=== PATIENT | female | born 1995 | race Two or more races ===

== ENCOUNTER 2020-09-17 21:08 | Emergency (ER) | payer OTHER ==
[2020-09-17 21:15] VITALS: BP 107/65; PULSE 102; TEMP 98.5; BMI 32.9
== END 2020-09-17 21:58 | disposition home or self-care (01) ==
LOC: JERFT 21:08
DX: S61.206A Unspecified open wound of right little finger without damage to nail, initial encounter (principal)
CPT/HCPCS: 99282-25

== ENCOUNTER 2020-11-25 21:11 | Emergency (ER) | payer OTHER ==
[2020-11-25 21:18] VITALS: BMI 35.9
[2020-11-25] MEDS ORDERED: SODIUM CHLORIDE 1,000 ML IV STA (22:40)
[2020-11-25] MEDS ORDERED: METOCLOPRAMIDE HCL INJECTION 10 MG/2 ML VIAL IVPUSH ONE (22:40)
[2020-11-25] MEDS ORDERED: ACETAMINOPHEN 1000 MG/100 ML VIAL (NON FORMULARY) IVPB ONE (22:40)
[2020-11-25] MEDS ORDERED: MAG HYDROX/AL HYDROX/SIMETH 30 ML UNIT-DOSE CUP PO ONE (22:43)
[2020-11-25] MEDS ORDERED: FAMOTIDINE 20 MG/50 ML IVPB 20 MG/50 ML MG IVPB ONE ×2 (22:43→22:49)
[2020-11-25] MEDS ORDERED: MAG HYDROX/AL HYDROX/SIMETH 30 ML UNIT-DOSE CUP ONE (22:49)
[2020-11-25] MEDS ORDERED: METOCLOPRAMIDE HCL INJECTION 10 MG/2 ML VIAL ONE (22:49)
[2020-11-25] MEDS ORDERED: ACETAMINOPHEN INJECTION 100 ML IVPB ONE (22:49)
[2020-11-25 23:03] LABS: BASO % 0.6 % (0-2.0); EOS % 0.4 % (0-4.5); HEMATOCRIT 37.7 % (32.4-45.2); HEMOGLOBIN 12.7 GM/dL (10.7-15.3); LYMPH % 28.7 % (8-40); MCH 29.8 pg (25.7-33.7); MCHC 33.6 g/dl (32.0-36.0); MEAN CELL VOLUME 88.6 fl (80-96); MEAN PLT VOLUME 8.6 fl (7.5-11.1); MONO % 5.6 % (3.8-10.2); NEUT % 64.7 % (42.8-82.8); PLATELET COUNT 386 10^3/uL (134-434); RBC 4.25 M/mm3 (3.60-5.2); RDW 16.1 % (11.6-15.6); WHITE BLOOD COUNT 12.5 K/mm3 (4.0-10.0)
[2020-11-25 23:26] LABS: EPI CELLS 35 /uL (0-25.1); HYALINE CASTS 6 /uL (0-3.1); URINE APPEARANCE CLOUDY; URINE BACTERIA 853 /uL (0-1359); URINE BILIRUBIN NEGATIVE (NEGATIVE); URINE COLOR YELLOW; URINE GLUCOSE (UA) NEGATIVE (NEGATIVE); URINE KETONE TRACE (NEGATIVE); URINE LEUK ESTERASE TRACE (NEGATIVE); URINE NITRITE NEGATIVE (NEGATIVE); URINE PROTEIN NEGATIVE (NEGATIVE); URINE WBC 71 /uL (0-25.8)
[2020-11-25 23:28] LABS: ALBUMIN 3.6 g/dl (3.4-5.0); BLOOD UREA NITROGEN 7.1 mg/dL (7-18); CALCIUM 9.4 mg/dL (8.5-10.1)
[2020-11-25 23:32] LABS: CREATININE 0.6 mg/dL (0.55-1.3)
[2020-11-25 23:33] LABS: BILIRUBIN,TOTAL 0.1 mg/dL (0.2-1); TOT PROT 7.5 g/dl (6.4-8.2)
[2020-11-26 00:03] LABS: URINE RBC 70.1 /uL (0-23.9)
[2020-11-26] MEDS ORDERED: NITROFURANTOIN MACROCRYSTAL 50 MG CAPSULE (FP) PO SCH (01:30)
[2020-11-26 01:54] VITALS: BP 107/71; PULSE 73; TEMP 98.8
== END 2020-11-26 01:48 | disposition home or self-care (01) ==
LOC: JER 21:11
PROC: 3E033GC Introduction of Other Therapeutic Substance into Peripheral Vein, Percutaneous Approach (ICD-10-PCS; principal; 2020-11-25)
DX: O21.0 Mild hyperemesis gravidarum (principal); O23.41 Unspecified infection of urinary tract in pregnancy, first trimester; Z3A.01 Less than 8 weeks gestation of pregnancy
CPT/HCPCS: 36415; 76830-TC; 80053; 81003; 83690; 84702; 85025; 87077; 87086; 87186; 99284-25; J0131

== ENCOUNTER 2021-01-04 21:59 | Emergency (ER) | payer OTHER ==
[2021-01-04 22:10] VITALS: BP 115/74; PULSE 82; TEMP 98.1; BMI 34.7
[2021-01-04] MEDS ORDERED: ONDANSETRON 4 MG/2 ML VIAL IVPUSH ONE (23:32)
[2021-01-04] MEDS ORDERED: SODIUM CHLORIDE 1,000 ML IV STA (23:32)
[2021-01-04] MEDS ORDERED: ONDANSETRON 4 MG/2 ML VIAL ONE (23:36)
[2021-01-05 00:17] LABS: BASO % 0.6 % (0-2.0); EOS % 0.5 % (0-4.5); HEMATOCRIT 36.1 % (32.4-45.2); HEMOGLOBIN 12.1 GM/dL (10.7-15.3); LYMPH % 28.9 % (8-40); MCH 29.5 pg (25.7-33.7); MCHC 33.6 g/dl (32.0-36.0); MEAN CELL VOLUME 87.7 fl (80-96); MONO % 3.6 % (3.8-10.2); NEUT % 66.4 % (42.8-82.8); PLATELET COUNT 378 10^3/uL (134-434); RBC 4.11 M/mm3 (3.60-5.2); RDW 15.7 % (11.6-15.6); WHITE BLOOD COUNT 12.9 K/mm3 (4.0-10.0)
[2021-01-05 00:45] LABS: CALCIUM 9.3 mg/dL (8.5-10.1)
[2021-01-05 00:46] LABS: ALBUMIN 3.2 g/dl (3.4-5.0); BLOOD UREA NITROGEN 6.6 mg/dL (7-18)
[2021-01-05 00:49] LABS: CREATININE 0.6 mg/dL (0.55-1.3)
[2021-01-05 00:51] LABS: BILIRUBIN,TOTAL 0.2 mg/dL (0.2-1); TOT PROT 7.4 g/dl (6.4-8.2)
[2021-01-05 01:54] LABS: EPI CELLS 36 /uL (0-25.1); HYALINE CASTS 7 /uL (0-3.1); PH,URINE 6.5 (5.0-8.0); URINE BACTERIA 814 /uL (0-1359); URINE BILIRUBIN NEGATIVE (NEGATIVE); URINE COLOR YELLOW; URINE GLUCOSE (UA) NEGATIVE (NEGATIVE); URINE KETONE 1+ (NEGATIVE); URINE LEUK ESTERASE TRACE (NEGATIVE); URINE NITRITE NEGATIVE (NEGATIVE); URINE PROTEIN 2+ (NEGATIVE); URINE WBC 42 /uL (0-25.8)
[2021-01-05 04:11] LABS: URINE APPEARANCE CLEAR
== END 2021-01-05 01:45 | disposition home or self-care (01) ==
LOC: JER 21:59
PROC: 3E033GC Introduction of Other Therapeutic Substance into Peripheral Vein, Percutaneous Approach (ICD-10-PCS; principal; 2021-01-04)
DX: O21.0 Mild hyperemesis gravidarum (principal); O26.891 Other specified pregnancy related conditions, first trimester; N83.201 Unspecified ovarian cyst, right side; Z3A.12 12 weeks gestation of pregnancy
CPT/HCPCS: 36415; 76815; 80053; 81003; 84702; 85025; 87086; 96361; 96374; 99284-25

== ENCOUNTER 2021-10-30 02:52 | Emergency (ER) | payer OTHER ==
[2021-10-30 03:11] VITALS: BP 125/70; PULSE 88; RESP 20; TEMP 97.6; BMI 30.7
[2021-10-30] MEDS ORDERED: ACETAMINOPHEN 500 MG TABLET (FP) PO ONE (03:48)
[2021-10-30] MEDS ORDERED: ACETAMINOPHEN 325 MG TABLET (FP) ONE (03:52)
== END 2021-10-30 05:08 | disposition home or self-care (01) ==
LOC: JER 02:52
DX: S99.912A Unspecified injury of left ankle, initial encounter (principal)
CPT/HCPCS: 73590-TC-LT-FY; 73610-TC-LT-FY; 73630-TC-LT; 99284-25